=== PATIENT | male | born 1990 | race Caucasian/White ===

== ENCOUNTER 2018-01-13 17:53 | Emergency (ER) | payer OTHER ==
[2018-01-13 18:42] VITALS: BP 148/89
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
== END 2018-01-13 19:40 | disposition home or self-care (01) ==
LOC: ER 17:53
DX: S16.1XXA Strain of muscle, fascia and tendon at neck level, initial encounter (principal); S06.0X0A Concussion without loss of consciousness, initial encounter; V89.2XXA Person injured in unspecified motor-vehicle accident, traffic, initial encounter
CPT/HCPCS: 99283